=== PATIENT | female | born 1965 | race Caucasian/White ===

== ENCOUNTER 2017-08-12 11:44 | Emergency (ER) | payer OTHER ==
[2017-08-12 11:46] VITALS: BP 205/106; PULSE 69; RESP 14; TEMP 98.4; O2SAT 98
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
[2017-08-12] MEDS ORDERED: cloNIDine HCL 0.1 MG TAB PO ONE (15:15)
[2017-08-12] MEDS ORDERED: ATEN100T PO (17:00)
[2017-08-12] MEDS ORDERED: CYCL10TA PO (17:00)
[2017-08-12] MEDS ORDERED: IBUP1TAB5 PO (17:00)
== END 2017-08-12 19:00 | disposition home or self-care (01) ==
LOC: NEPK 11:44
DX: S20.01XA Contusion of right breast, initial encounter (principal); M79.641 Pain in right hand; S16.1XXA Strain of muscle, fascia and tendon at neck level, initial encounter; I10 Essential (primary) hypertension; V42.5XXA Car driver injured in collision with two- or three-wheeled motor vehicle in traffic accident, initial encounter; Z72.0 Tobacco use
CPT/HCPCS: 71020; 73130; 99283